=== PATIENT | male | born 1955 ===

== ENCOUNTER → 2019-09-07 | Outpatient (CLI) | payer SELFPAY ==
[~2019-09-07] MED LIST: ALLO100 PO; AMLO5 PO; COLCHICINE0.6 MG PO; DICL25ER PO; FISH1000 PO; LOVA40 PO; OMEP20ER PO; TRAM50 PO
[2019-09-07 08:52] LABS: BASOPHILS ABSOLUTE AUTO 0.04 K/mm3 (0.00-0.23); BASOPHILS PERCENT AUTO 0 % (0-2); EOSINOPHILS ABSOLUTE AUTO 0.03 K/mm3 (0.00-0.68); EOSINOPHILS PERCENT AUTO 0 % (0-6); Hematocrit 40.2 % (37.0-53.0); Hemoglobin 13.1 g/dL (13.5-17.5); IMMATURE GRAN ABSOLUTE AUTO 0.08 K/mm3 (0.00-0.10); IMMATURE GRAN PERCENT AUTO 1 % (0-1); LYMPHOCYTES ABSOLUTE AUTO 0.98 K/mm3 (0.84-5.20); LYMPHOCYTES PERCENT AUTO 10 % (21-46); MONOCYTES ABSOLUTE AUTO 0.37 K/mm3 (0.16-1.47); MONOCYTES PERCENT AUTO 4 % (4-13); Mean Corpuscular HGB 28.9 pg (26.0-34.0); Mean Corpuscular HGB Conc 32.6 g/dL (31.5-36.5); Mean Corpuscular Volume 89 fL (80-100); Mean Platelet Volume 8.8 fL (9.1-12.4); NEUTROPHILS ABSOLUTE AUTO 8.27 K/mm3 (1.96-9.15); NEUTROPHILS PERCENT AUTO 85 % (41-73); Platelet Count 332 K/mm3 (150-400); RDW Coefficient Variation 13.6 % (11.7-14.2); RDW Standard Deviation 43.9 fL (35.1-46.3); Red Blood Cell Count 4.54 M/mm3 (4.30-5.90); White Blood Cell Count 9.77 K/mm3 (4.00-11.30)
== END | disposition home or self-care (01) ==
LOC: LAB SHORT 08:48 → LAB EV 08:48
PROVIDERS: Physician Assistant Surgical
DX: M25.461 Effusion, right knee (principal)
CPT/HCPCS: 85025

== ENCOUNTER 2023-01-25 06:06 | Day surgery (SDC) | payer MEDICARE, OTHER ==
[~2023-01-25] VITALS: Ht 172.7 cm; Wt 103.7 kg
[2023-01-25] MEDS ORDERED: PANTOPRAZOLE SO40 M2 PO (06:25)
[2023-01-25] MEDS ORDERED: FUROSEMIDE40 MG PO (06:26)
[2023-01-25] MEDS ORDERED: ATOR40TA PO (06:26)
[2023-01-25] MEDS ORDERED: TAMSULOSIN HCL0.4 M1 PO (06:26)
[2023-01-25] MEDS ORDERED: KLOR-CON 1010 ME9 PO (06:27)
[2023-01-25] MEDS ORDERED: BACLOFEN10 M4 PO (06:27)
[2023-01-25] MEDS ORDERED: ASPI81CH PO (06:28)
--- NOTE | 2023-01-25 06:53 | NUR ---
01/25/23 0653 DarnellHoney IN ROOM AT BEDSIDE.PT COMFORTABLE IN BED. HAVING SOME BACK PAIN, WARM PACK PROVIDED. NO QUESTIONS OR CONCERNS AT THIS TIME. CALL LIGHT WITHIN REACH
--- NOTE | 2023-01-25 08:27 | NUR ---
01/25/23 0827 Ne Elizondo GEL PAD UNDER SAFETY STRAPS X2, LEFT ARM SECURED ON ARMBOARD WITH SAFETY STRAP.
--- NOTE | 2023-01-25 10:40 | NUR ---
01/25/23 Lai0 Leatha Werner DC'D AT 1039 SATS ARE 94% CURRENTLY.
[2023-01-25 11:07] VITALS: BP 126/76
--- NOTE | 2023-01-25 13:18 | NUR ---
01/25/23 1318 Naomy Ruth ASSUMED CARE OF PT FROM TK BAUM IN SDU. PT ON 3L O2 VIA NASAL CANNULA WITH SATS 95% WHEN AWAKE, 84-85% WHEN FALLING ASLEEP. ONTO POM MASK 10L 02 WITH SATS 99-100%. UPDATED MD SALDIVAR ON STATUS OF PT'S O2 LEVELS, HE SAID "WE MIGHT NEED TO KEEP HIM HERE LONGER THAN ANTICIPATED."
== END 2023-01-25 13:05 | disposition home or self-care (01) ==
LOC: ORSCSDS 06:06
PROVIDERS: Orthopaedic Surgery
PROC: 0LS34ZZ Reposition Right Upper Arm Tendon, Percutaneous Endoscopic Approach (ICD-10-PCS; principal; 2023-01-25 07:30)
PROC: 0RBJ4ZZ Excision of Right Shoulder Joint, Percutaneous Endoscopic Approach (ICD-10-PCS; principal; 2023-01-25 07:30)
DX: M19.011 Primary osteoarthritis, right shoulder (principal); M75.41 Impingement syndrome of right shoulder; M75.111 Incomplete rotator cuff tear or rupture of right shoulder, not specified as traumatic; I10 Essential (primary) hypertension; E78.00 Pure hypercholesterolemia, unspecified; K21.9 Gastro-esophageal reflux disease without esophagitis; E66.9 Obesity, unspecified; Z68.39 Body mass index [BMI] 39.0-39.9, adult; Z79.899 Other long term (current) drug therapy
CPT/HCPCS: C1713; J0171; J0690; J1100; J1170; J1885; J2250; J2405; J2704; J2795; J3010; J7120

== ENCOUNTER → 2023-04-15 | Outpatient (CLI) | payer MEDICARE, OTHER ==
[~2023-04-15] MED LIST changes: +ASPI81CH PO; +ATOR40TA PO; +BACLOFEN10 M4 PO; +FUROSEMIDE40 MG PO; +KLOR-CON 1010 ME9 PO; +PANTOPRAZOLE SO40 M2 PO; +TAMSULOSIN HCL0.4 M1 PO
[2023-04-15 12:53] LABS: Bun/Creatinine Ratio 20.6 (12.0-20.0); Creatinine, Blood 0.97 mg/dL (0.60-1.20); Potassium, Blood 4.2 mmol/L (3.5-5.5)
[2023-04-15 13:17] LABS: BASOPHILS ABSOLUTE AUTO 0.04 K/mm3 (0.00-0.23); BASOPHILS PERCENT AUTO 1 % (0-2); EOSINOPHILS ABSOLUTE AUTO 0.12 K/mm3 (0.00-0.68); EOSINOPHILS PERCENT AUTO 2 % (0-6); Hematocrit 46.6 % (37.0-53.0); Hemoglobin 15.1 g/dL (13.5-17.5); IMMATURE GRAN ABSOLUTE AUTO 0.02 K/mm3 (0.00-0.10); IMMATURE GRAN PERCENT AUTO 0 % (0-1); LYMPHOCYTES ABSOLUTE AUTO 1.92 K/mm3 (0.84-5.20); LYMPHOCYTES PERCENT AUTO 29 % (21-46); MONOCYTES ABSOLUTE AUTO 0.42 K/mm3 (0.16-1.47); MONOCYTES PERCENT AUTO 6 % (4-13); Mean Corpuscular HGB 28.5 pg (26.0-34.0); Mean Corpuscular HGB Conc 32.4 g/dL (31.5-36.5); Mean Corpuscular Volume 88 fL (80-100); Mean Platelet Volume 9.3 fL (9.1-12.4); NEUTROPHILS ABSOLUTE AUTO 4.03 K/mm3 (1.96-9.15); NEUTROPHILS PERCENT AUTO 62 % (41-73); Platelet Count 309 K/mm3 (150-400); RDW Coefficient Variation 13.2 % (11.7-14.2); RDW Standard Deviation 42.4 fL (35.1-46.3); White Blood Cell Count 6.55 K/mm3 (4.00-11.30)
== END ==
LOC: LAB 12:43 → LAB SHORT 12:43
PROVIDERS: Chiropractor
DX: N63.0 Unspecified lump in unspecified breast (principal)
CPT/HCPCS: 80048; 85025